=== PATIENT | male | born 1950 | race Two or more races ===

== ENCOUNTER → 2016-07-25 | Outpatient (CLI) | payer MEDICARE, BC ==
[2016-07-25 08:43] LABS: Cholesterol 109 mg/dL (<200); HDL Cholesterol 48 mg/dL (40-60); Triglycerides 52 mg/dL (<150)
== END | disposition home or self-care (01) ==
LOC: LABWHC1 08:07
PROVIDERS: ATTEND Internal Medicine Cardiovascular Disease
DX: I25.10 Atherosclerotic heart disease of native coronary artery without angina pectoris (principal)
CPT/HCPCS: 36415; 80061

== ENCOUNTER → 2016-09-08 | Outpatient (CLI) | payer BC, MEDICARE ==
--- NOTE | 2016-09-09 08:51 | CONS ---
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 The patient snores loud and this has been witnessed by his . She has also noted that at times he would quit breathing however, it has not been as frequent ( ) appearing event. He has had previous ( ). He has nocturia. No grinding of the teeth. No sleepwalking. No anxiety or panic attacks. No nighttime palpitations or heartburn. No waking up in the middle of night gasping for air. No restlessness in the lower extremities. No sleep talking or sleepwalking. The patient would wake up tired and yet not sleepy. He does not fall asleep while driving his car. He does to go to bed around 10:00 p.m., wakes up at 7 to 7:30 a.m. in the morning. He is averaging around 8 hours of sleep. No recent weight gain. He sleeps in a sidewise body position. He has never been involved in a motor vehicle accident because of feeling drowsy or sleepy. PAST MEDICAL HISTORY: 1. Coronary disease with nonocclusive CAD based on a previous cardiac catheterization. 2. Prostate cancer with previous prostatectomy. 3. Hyperlipidemia. 4. Varicose veins. PAST SURGICAL HISTORY: Includes varicose vein stripping. Cardiac catheterization and prostatectomy. DRUG ALLERGIES: Not known. HE IS ALLERGIC TO POLLEN AND WALNUTS. Outpatient medication list includes: 1. Metoprolol. 2. Atorvastatin. 3. Aspirin. 4. Garlique. 5. Vitamin D3. 6. Coenzyme Q. SOCIAL HISTORY: Nonsmoker. No history of alcohol, no history of IV drugs. FAMILY HISTORY: Noncontributory. REVIEW OF SYSTEMS: Twelve-point review of systems was done and positive findings were all mentioned above in the history of present illness. BP is 106/55, pulse is 64, respiratory rate 16, temperature 98.1, saturation 99% on room air. Weight is 176, height is 6 feet 2 inches, neck size 14-3/4 inches. GENERAL APPEARANCE: Calm, comfortable. HEENT: Crowding of posterior pharynx. Mallampati class IV. No goiter or neck masses. No overbite. No micrognathia. No macroglossia. LUNGS: Clear to auscultation. HEART: Sounds are regular rate and rhythm. Normal S1, S2. ABDOMEN: Soft, nontender. No organomegaly. EXTREMITIES: No edema. No cyanosis, or clubbing. IMPRESSION: 1. Obstructive sleep apnea suspected, clinically. Currently under investigation. 2. Coronary artery disease. 3. Varicose veins. 4. Hyperlipidemia. 5. Prostate cancer. PLAN: 1. Proceed with a home sleep study to investigate this patient for sleep apnea. 2. Treat accordingly.
== END ==
LOC: SLEEP 16:19
PROVIDERS: ATTEND Internal Medicine Critical Care Medicine
DX: I25.10 Atherosclerotic heart disease of native coronary artery without angina pectoris (principal); E78.5 Hyperlipidemia, unspecified; C61 Malignant neoplasm of prostate; I83.90 Asymptomatic varicose veins of unspecified lower extremity; Z79.82 Long term (current) use of aspirin; Z79.899 Other long term (current) drug therapy
CPT/HCPCS: 99211

== ENCOUNTER → 2016-12-08 | Outpatient (CLI) | payer MEDICARE ==
--- NOTE | 2016-12-08 17:38 | PN ---
PROGRESS NOTE 66-year-old male patient coming in for compliance check regarding VANNESSA treatment. 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 He underwent a home sleep study and was found to have moderate to severe obstructive sleep apnea and AHI of 29. Based on that, he was given CPAP titration during which he was titrated to a CPAP pressure of 9 cm of water. On today's evaluation, the patient reports marked improvement in his sleep quality. He is sleeping much better and is waking up much more alert and refreshed. As such, he has benefitted from the treatment and he is very happy with the quality of life that resulted from this treatment. He is using the CPAP on an average of 7.7 hours per night and this date I have accumulated over the past 30 days. He is using CPAP more than 4 hours 100% of the time. His AHI is down to 6. His leak is around 20 L/minutes. He is using a chin strap despite being on an AirFit F10 full face mask. We have recommended F 20 mask large size. BP is 109/72, pulse 57, respirations 16, [place] score of 2. Temperature 98.2, weight is 174, saturation 98%. General appearance is calm and comfortable. HEENT: Crowding of the posterior pharynx. No goiter. No neck masses. Lungs clear to auscultation. Heart sounds regular rhythm. Normal S1, S2. Soft nontender. No organomegaly. Extremities is no edema. No cyanosis or clubbing. IMPRESSION: 1. Obstructive sleep apnea. AHI of 29. The patient is undergoing successful treatment. He is benefiting from the treatment. He is very compliant based on the compliance data that was collected over the past 30 days. 2. Coronary artery disease. 3. Hyperlipidemia. PLAN: 1. Continue CPAP at a pressure of 9. 2. Switch this patient to an AirFit F 20 full-face mask. 3. Implement good sleep hygiene measures. 4. We will continue to follow. He will me back in a year's time. Earlier if needed. MMODL / IJN: [id number] /
== END ==
LOC: SLEEP 13:16
PROVIDERS: ATTEND Internal Medicine Critical Care Medicine
DX: G47.33 Obstructive sleep apnea (adult) (pediatric) (principal); E78.5 Hyperlipidemia, unspecified; I25.10 Atherosclerotic heart disease of native coronary artery without angina pectoris

== ENCOUNTER → 2017-08-21 | Outpatient (CLI) | payer MEDICARE ==
[2017-08-21 10:12] LABS: Cholesterol 129 mg/dL (<200); HDL Cholesterol 55 mg/dL (40-60); LDL Cholesterol,Calculated 65 mg/dL (0-99); Triglycerides 47 mg/dL (<150)
== END | disposition home or self-care (01) ==
LOC: LABWHC1 09:29
PROVIDERS: ATTEND Internal Medicine Cardiovascular Disease
DX: E78.5 Hyperlipidemia, unspecified (principal); I25.10 Atherosclerotic heart disease of native coronary artery without angina pectoris
CPT/HCPCS: 36415; 80061

== ENCOUNTER → 2018-01-04 | Outpatient (CLI) | payer MEDICARE ==
--- NOTE | 2018-01-04 18:44 | PN ---
PROGRESS NOTE Hermilo is coming in for an annual check regarding obstructive sleep apnea. The patient has been diagnosed having VANNESSA with an AHI of 29, and the patient is currently on CPAP therapy. The patient has been extremely successful in regards to his CPAP treatment. The patient has been averaging around 8.3 hours of CPAP use per night. The leak factor is 35 L/minute. He is using the CPAP every night without any interruption. AHI while on treatment is down to 9.5. He has no specific complaints otherwise for now. His [place] score is 5. No snoring while on CPAP therapy. No other complaints. PHYSICAL EXAMINATION: BP is 110/51, pulse 56, respiration 16, temperature 98.2, saturation 98% on room air. GENERAL APPEARANCE: Calm, comfortable. Head is atraumatic, normocephalic. NECK: Supple. No JVD. No goiter or neck mass. Mallampati class IV. LUNGS: Clear to auscultation. HEART: Heart sounds are regular rate and rhythm. Normal S1, S2. No S3, S4. No murmurs. ABDOMEN: Soft, nontender. No organomegaly. EXTREMITIES: No edema. No cyanosis or clubbing. IMPRESSION: 1. Obstructive sleep apnea, severe, with an apnea/hypopnea index of 29, currently on CPAP with successful therapy at a pressure of 9 cm of water. 2. Hypersomnia, recovered. [place] score is down to 5. 3. Coronary artery disease. 4. Hyperlipidemia. PLAN: 1. Continue CPAP therapy at the same level of pressure. 2. Sleep hygiene measures are all good. The patient is benefitting from the treatment. See me back in a year's time, earlier if needed. MMODL / IJN: [id number] /
== END | disposition home or self-care (01) ==
LOC: SLEEP 13:47
PROVIDERS: ATTEND Internal Medicine Critical Care Medicine
DX: G47.33 Obstructive sleep apnea (adult) (pediatric) (principal); I25.10 Atherosclerotic heart disease of native coronary artery without angina pectoris; E78.5 Hyperlipidemia, unspecified; Z99.89 Dependence on other enabling machines and devices

== ENCOUNTER → 2018-10-21 | Outpatient (CLI) | payer MEDICARE ==
--- NOTE | 2018-10-21 09:21 | US ---
EXAMINATION TYPE: US duplex aorta DATE OF EXAM: 10/21/2018 COMPARISON: NONE CLINICAL HISTORY: I71.4 AAA. Family Hx EXAM MEASUREMENTS: Abdominal Aorta: Proximal: 2.4 x 2.2 cm Mid: 2.0 x 1.9 cm Distal: 1.8 x 1.6 cm Bifurcation: 0.9 cm 0.9 cm No evidence of AAA Grayscale, color Doppler imaging performed of the abdominal aorta IMPRESSION: Abdominal aorta shows normal caliber.
--- NOTE | 2018-10-21 09:28 | US ---
EXAMINATION TYPE: US carotid duplex BILAT DATE OF EXAM: 10/21/2018 COMPARISON: NONE, Carotid US done elsewhere. CLINICAL HISTORY: I65.29 OCCLUSION AND STENOSIS OF CAROTID ARTERY. EXAM MEASUREMENTS: RIGHT: Peak Systolic Velocity (PSV) cm/sec ----- Right CCA: 100.5 ----- Right ICA: 120.6 ----- Right ECA: 127.1 ICA/CCA ratio: 1.2 RIGHT: End Diastole cm/sec ----- Right CCA: 27.3 ----- Right ICA: 55.9 ----- Right ECA: 17.1 LEFT: Peak Systolic Velocity (PSV) cm/sec ----- Left CCA: 86.3 ----- Left ICA: 106.1 ----- Left ECA: 138.4 ICA/CCA ratio: 1.2 LEFT: End Diastole cm/sec ----- Left CCA: 29.3 ----- Left ICA: 49.5 ----- Left ECA: 17.1 VERTEBRALS (direction of flow): Right Vertebral: Antegrade Left Vertebral: Antegrade Rhythm: Normal Calcified plaque bilateral bulbs Grayscale, color Doppler, spectral Doppler imaging performed of the carotid arteries. Waveform analys is does not show significant stenosis of the proximal internal carotid arteries. IMPRESSION: No hemodynamic significant stenosis of the proximal internal carotid arteries bilaterall y by Doppler criteria, an indirect measurement of carotid stenosis
== END | disposition home or self-care (01) ==
LOC: RADUSWWP 06:53
PROVIDERS: ATTEND Family Medicine
DX: I65.29 Occlusion and stenosis of unspecified carotid artery (principal)
CPT/HCPCS: 93880; 93979

== ENCOUNTER → 2018-12-27 | Outpatient (CLI) | payer MEDICARE ==
--- NOTE | 2018-12-27 19:57 | PN ---
PROGRESS NOTE Hermilo is doing well and he is coming in for annual check regarding his obstructive sleep apnea treatment. This patient has moderate to severe disease with an AHI of 29, and currently he is on CPAP at a pressure of 9 cm of water. He continues to be extremely compliant, averaging about 7.8 hours of CPAP use per night. His CPAP use for more than 4 hours is 29/30, averaging around 7.8 hours per night. His AHI is down to 9. No other issues for now. No other new complaints. His [place] score currently is down to 5. His weight is 175 pounds. There have been no other significant issues over this past one year. PHYSICAL EXAMINATION: VITAL SIGNS: BP is 103/56, pulse 56, respirations 16, temperature 98.4, saturation 99% on room air. GENERAL APPEARANCE: Calm, comfortable. HEAD: Atraumatic, normocephalic. NECK: Supple. No JVD. No goiter or neck masses. LUNGS: Clear to auscultation. HEART: Heart sounds are regular rate and rhythm. Normal S1, S2. No S3, S4. No murmurs. ABDOMEN: Soft, nontender. No organomegaly. EXTREMITIES: No edema. No cyanosis or clubbing. IMPRESSION: 1. Obstructive sleep apnea with apnea/hypopnea index of 29, currently on a CPAP pressure of 9. 2. Hypersomnia. 3. Coronary artery disease. 4. Hyperlipidemia. PLAN: 1. Continue CPAP therapy at the same level of pressure. 2. Renewal of CPAP supplies will be done. 3. Treatment is successful. See me back in a year's time. MMODL / IJN: [id number] /
== END | disposition home or self-care (01) ==
LOC: SLEEP 13:21
PROVIDERS: ATTEND Internal Medicine Critical Care Medicine
DX: G47.33 Obstructive sleep apnea (adult) (pediatric) (principal); I25.10 Atherosclerotic heart disease of native coronary artery without angina pectoris; E78.5 Hyperlipidemia, unspecified; Z99.89 Dependence on other enabling machines and devices

== ENCOUNTER → 2020-01-23 | Outpatient (CLI) | payer MEDICARE ==
--- NOTE | 2020-01-23 15:21 | P.PN ---
Subjective Progress Note Date: 01/23/20 on 01/23/2020, seeing this patient for a follow-up in the sleep center in regards to his obstructive sleep apnea. This is an annual check. The patient is 70 years old and the patient is known to have obstructive sleep apnea with an AHI of 29 and the patient was being treated with CPAP pressure of 9 cm of water. He was given an airfit F20 fullface mask. Note that during the course of the treatment, the patient started having increased leak and he was getting progressively more uncomfortable with the treatment. Based on that, he did his own adjustments. He lowered a CPAP pressure from 9 to 5 cm of water and has been on the same setting for around a few months. On today's compliancy evaluation, check the patient's CPAP unit. Despite the drop in the pressure,the patient is doing extremely well. The patient is tolerating the treatment. The patient has been wearing his CPAP overnight and his CPAP compliancy for more than 4 hours at 100%. His been averaging around 8.1 hours of CPAP use per night and hisAHI while on treatment is down to 7.1. His [place] score is at 5. No gastric distention. No chest pain. No heartburn. No shortness of breath. No altered mentation. No major hypersomnia and sleepiness during the day. He has been healthy. He has been trying to go to [place] for the winter. Repeat under good control. No other complaints or issues otherwise for now. His machine is functional. His weight has been stable. Objective - Exam bP is 100/70, pulse is 63, respirations 16, temperature is 98.3,height is 6 feet 1 inch, weight is 176, body mass index is 22.7, [place] score is at 5,his oxygen saturations around 99%on room air. The patient appeared well nourished and normally developed. Vital signs as documented. Head exam is unremarkable. No scleral icterus or corneal arcus noted. Neck is without jugular venous distension, thyromegaly, or carotid bruits. Carotid upstrokes are brisk bilaterally. Lungs are clear to auscultation and percussion. Cardiac exam reveals the PMI to be normally sized and situated. Rhythm is regular. First and second heart sounds normal. No murmurs, rubs or gallops. Abdominal exam reveals normal bowel sounds, no masses, no organomegaly and no aortic enlargement. Extremities are nonedematous and both femoral and pedal pulses are normal.Examination of the skin revealed no evidence of significant rashes, suspicious appearing nevi or other concerning lesions.Neurologically, the patient is awake and alert and the patient does not have any focal neurological deficit. Cranial nerves are essentially intact. Assessment and Plan Plan: 1 obstructive sleep apnea, moderate to severe in nature with an AHI of 29, currently adequately treated with a CPAP pressure of 5 cm of water. Compliance data was checked. Clinically improved. The patient epworth score is down to 5. 2 chronic hypersomnia, improved 3 coronary artery disease 4 hyperlipidemia Plan keep the same CPAP pressure of 5 cm of water. i try to increase the pressure up to 6 cm of water and even with that, the patient's mask seal was in good and the patient starts having increasedleaks around the mask. Based on that, I lowered the pressure back to 5 cm of water. I will keep the airfit F20 fullface maskfor now. Clinically the patient is feeling well. He is benefiting from the treatment. I do not see the need to increase the pressure any further. Comorbidities are all stable. He is compliant. I will refill his supplies and the tubing and the mask. I'll see him back in one years time in follow-up. During this time, the patient will be spending his winter in [place].
== END | disposition home or self-care (01) ==
LOC: SLEEP 14:49
PROVIDERS: ATTEND Internal Medicine Critical Care Medicine
DX: G47.33 Obstructive sleep apnea (adult) (pediatric) (principal); I25.10 Atherosclerotic heart disease of native coronary artery without angina pectoris; E78.5 Hyperlipidemia, unspecified; Z99.89 Dependence on other enabling machines and devices

== ENCOUNTER → 2020-10-09 | Outpatient (CLI) | payer MEDICARE ==
--- NOTE | 2020-10-09 12:30 | US ---
EXAMINATION TYPE: US liver DATE OF EXAM: 10/09/2020 COMPARISON: NONE CLINICAL HISTORY: R17. Elevated bilirubin EXAM MEASUREMENTS: Liver Length: 11.7 cm Gallbladder Wall: 0.2 cm CBD: 0.4 cm Right Kidney: 10.7 x 4.2 x 5.3 cm Pancreas: visualized portions wnl Liver: right lobe cyst measures 1.3 x 1.3 x 1.6 cm Gallbladder: No stones seen Evidence for sonographic Espinoza's sign: No CBD: wnl Right Kidney: No hydronephrosis or masses seen IMPRESSION: 1. The head and tail are poorly visualized of the pancreas due to overlying bowel gas. 2. No gallstones, sludge, or pericholecystic fluid. 3. 1.3 x 1.3 x 1.6 cm hepatic cyst with septation in the right lobe of the liver. 4. No right renal calculi or hydronephrosis. 5. No ascites.
== END | disposition home or self-care (01) ==
LOC: RADUSWWP 07:01
PROVIDERS: ATTEND Family Medicine
DX: K76.89 Other specified diseases of liver (principal)
CPT/HCPCS: 76705

== ENCOUNTER → 2021-01-14 | Outpatient (CLI) | payer MEDICARE ==
--- NOTE | 2021-01-14 15:27 | SFUN ---
SLEEP CENTER FOLLOW UP NOTE Hermilo is 71, coming in for an annual check regarding his obstructive sleep apnea. He is known to have moderate to severe disease with an AHI of 29. During his last visit I noted that the patient was having some residual obstructive respiratory events. I increased his pressure from 5 cm of water up to 6 cm of water. He was unable to tolerate and he dropped it back to 5 cm. On today's compliance data, the patient is averaging around 8 hours of CPAP use per night and his leak is on the order of 37 L/minute. His AHI is down to 14. He has a thin, elongated face which is making the mask seal quite unsuccessful. He is currently using an AirFit F20 full-face mask, large size. He is unable to increase the pressure because of increased leak, unable to hold the mask tight to his face because of discomfort. At any rate, he has lost around 10 pounds. He is feeling better. His snoring has subsided. He is much more alert and awake during the day. [place] score is 6. Despite the incomplete success of his VANNESSA treatment, the patient is feeling well and he benefits from the treatment. He reports his sleep quality to be good. REVIEW OF SYSTEMS: Fourteen-point review of systems was done. Positive findings are all mentioned above in the history of present illness. PHYSICAL EXAMINATION: BP is 131/75, pulse 51, respirations 16, temperature 97.3, saturation 97% on room air. Height is , weight is 166 and BMI is 21.3. [place] score is 6. GENERAL APPEARANCE: Calm, comfortable. HEAD: Atraumatic, normocephalic. Neck is supple. No JVD. No goiter or neck masses. LUNGS: Diminished. Otherwise clear. Heart sounds are regular rate and rhythm. Normal S1, S2. No S3, S4. No murmurs. ABDOMEN: Soft, nontender. No organomegaly. EXTREMITIES: No edema. No cyanosis or clubbing. NEUROLOGIC: Awake and alert. There is no focal neurological deficit. PSYCHIATRIC: Negative for anxiety or depression. IMPRESSION: 1. Obstructive sleep apnea, moderate to severe, AHI of 29, currently on CPAP at a pressure of 5. Treatment is incomplete, as the patient is having some residual obstructive respiratory events. Nevertheless, unable to increase the pressure because of increased leak and discomfort and poor tolerability. 2. Hypersomnia, improved. [place] score is down to 6. 3. Coronary artery disease. 4. Hyperlipidemia. PLAN: 1. On today's evaluation I offered the patient an AirFit F30i full-face mask, medium size. 2. If he is able to tolerate the mask effectively, I am suggesting increasing the pressure at a later stage, up to 6 cm of water. 3. He has lost around 10 pounds. 4. Treatment is successful. He is aware that his treatment is not absolutely complete, knowing that he does have some residual events. Nevertheless, as long as he is benefitting from the treatment, he wants to continue the treatment, which is fine at this point in time. We will do a re-evaluation in a year's time. JAXON / IJN: [id number] /
== END ==
LOC: SLEEP 13:13
PROVIDERS: ATTEND Internal Medicine Critical Care Medicine
DX: G47.33 Obstructive sleep apnea (adult) (pediatric) (principal); E78.5 Hyperlipidemia, unspecified; I25.10 Atherosclerotic heart disease of native coronary artery without angina pectoris; Z99.89 Dependence on other enabling machines and devices

== ENCOUNTER → 2022-01-06 | Outpatient (CLI) | payer MEDICARE ==
--- NOTE | 2022-01-06 16:18 | P.PN ---
Subjective Progress Note Date: 01/06/22 on 01/23/2020, seeing this patient for a follow-up in the sleep center in regards to his obstructive sleep apnea. This is an annual check. The patient is 70 years old and the patient is known to have obstructive sleep apnea with an AHI of 29 and the patient was being treated with CPAP pressure of 9 cm of water. He was given an airfit F20 fullface mask. Note that during the course of the treatment, the patient started having increased leak and he was getting progressively more uncomfortable with the treatment. Based on that, he did his own adjustments. He lowered a CPAP pressure from 9 to 5 cm of water and has been on the same setting for around a few months. On today's compliancy evaluation, check the patient's CPAP unit. Despite the drop in the pressure,the patient is doing extremely well. The patient is tolerating the treatment. The patient has been wearing his CPAP overnight and his CPAP compliancy for more than 4 hours at 100%. His been averaging around 8.1 hours of CPAP use per night and hisAHI while on treatment is down to 7.1. His [place] score is at 5. No gastric distention. No chest pain. No heartburn. No shortness of breath. No altered mentation. No major hypersomnia and sleepiness during the day. He has been healthy. He has been trying to go to [place] for the winter. Repeat under good control. No other complaints or issues otherwise for now. His machine is functional. His weight has been stable. On 01/06/2022, I'm seeing the patient for a follow-up. The patient is coming in for an annual check prior to him going to [place]. As mentioned earlier, this is a case of severe VANNESSA with an AHI of 29. The patient was initially treated with a CPAP pressure of 9 cm of water and he was using an airfit F20 fullface mask. He continued to have difficulties tolerating the CPAP therapy and I dropped it down to pressures of 5 and ultimately I dropped the pressure down to a pressure of 4 cm of water.. For now, the patient is utilizing the machine. He is very sensitive and he tells me that pressures of 5 he is unable to tolerate and he is able to tolerate a pressure of 4 and a based on a compliant. Over the past 30 days, the patient utilizes machine 29 out of 30 and the patient has achieved more than 4 hours 29 out of 30 with an average pressures of 8.5 hours per night with a leak of 8 L per minute and his AHI is down to 16.9. He is using the fullface mask for now. While off the treatment, he chokes and he gasps and he has active features of obstructive sleep apnea. No cardiovascular complications. No weight gain. Is quite active. No other complaints otherwise for now. Objective - Exam BP is 135/72 with a pulse of 60 and respirations 16 and a temperature of 97.0 with a saturation of 99% on room air oxygen. Weight is 172. The patient appeared well nourished and normally developed. Vital signs as documented. Head exam is unremarkable. No scleral icterus or corneal arcus noted. Neck is without jugular venous distension, thyromegaly, or carotid bruits. Carotid upstrokes are brisk bilaterally. Lungs are clear to auscultation and percussion. Cardiac exam reveals the PMI to be normally sized and situated. Rhythm is regular. First and second heart sounds normal. No murmurs, rubs or gallops. Abdominal exam reveals normal bowel sounds, no masses, no organomegaly and no aortic enlargement. Extremities are nonedematous and both femoral and pedal pulses are normal.Examination of the skin revealed no evidence of significant rashes, suspicious appearing nevi or other concerning lesions.Neurologically, the patient is awake and alert and the patient does not have any focal neurological deficit. Cranial nerves are essentially intact. Assessment and Plan Plan: 1 obstructive sleep apnea, moderate to severe in nature with an AHI of 29, currently adequately treated with a CPAP pressure of 5 cm of water. Unfortunately, his partially treated and the patient CPAP pressure was dropped down to 4 cm and he continues to have excessive difficulties in tolerating the pressure sensation. Nevertheless, he managed to use it at a pressure of 4 cm and he obviously is partially treated. The patient continues to have residual obstructive respiratory events. 2 chronic hypersomnia, improved 3 coronary artery disease 4 hyperlipidemia Plan keep the same CPAP pressure of 4 cm of water. The exact cause for his poor tolerability is not clear. I'm recommending to do another CPAP titration after the patient comes back to [place] and decide if the issue is a pressure issue or the machine itself is nonfunctioning is delivering pressures higher than what it supposed to. Meanwhile, the patient was asked to continue the same machine at same pressure of 4 cm of water. I will keep the airfit F20 fullface maskfor now. Clinically the patient is feeling well. He is benefiting from the treatment. I do not see the need to increase the pressure any further. Comorbidities are all stable. He is compliant. I will refill his supplies and the tubing and the mask. I'm going to see him back after he comes back from [place] and he will undergo a CPAP titration. He may possibly need a updated CPAP machine.
== END ==
LOC: SLEEP 15:55
PROVIDERS: ATTEND Internal Medicine Critical Care Medicine
DX: G47.33 Obstructive sleep apnea (adult) (pediatric) (principal); I25.10 Atherosclerotic heart disease of native coronary artery without angina pectoris; E78.5 Hyperlipidemia, unspecified; Z99.89 Dependence on other enabling machines and devices

== ENCOUNTER → 2022-07-09 | Outpatient (CLI) | payer MEDICARE ==
--- NOTE | 2022-07-09 16:00 | US ---
LOWER EXTREMITY VENOUS INSUFFICIENCY CLINICAL HISTORY: 72-year-old male I87.333 Venous insufficiency. Varicose veins, prior rt superficial stripping SIDE PERFORMED: bilateral FINDINGS: 1) Color flow is present and patency is documented in the following vessels. Bilateral: Common Femoral Vein Deep Femoral Vein Femoral Vein Popliteal Vein Proximal Calf Veins Greater Saph Vein - left only (stripped on right) Upper Small Saph Vein 2) Right: There is prominent venous reflux noted within the right deep system from groin to prox calf vn s. Left: Minimal to no reflux noted within the left deep and superficial system. IMPRESSION: 1. No evidence for DVT within the bilateral lower extremities imaged from the groin to the upper calv es. 2. Prominent venous reflux noted throughout the right lower extremity. 3. Minimal to no reflux noted within the left lower extremity.
== END | disposition home or self-care (01) ==
LOC: RADUSWWP 13:49
PROVIDERS: ATTEND Internal Medicine Cardiovascular Disease
DX: I87.2 Venous insufficiency (chronic) (peripheral) (principal); I87.333 Chronic venous hypertension (idiopathic) with ulcer and inflammation of bilateral lower extremity; E78.5 Hyperlipidemia, unspecified; N18.9 Chronic kidney disease, unspecified; I25.10 Atherosclerotic heart disease of native coronary artery without angina pectoris
CPT/HCPCS: 93970

== ENCOUNTER → 2022-11-17 | Outpatient (CLI) | payer MEDICARE ==
--- NOTE | 2022-11-17 15:36 | P.PN ---
Progress Note - Text Progress Note Date: 11/17/22 72-year-old male patient coming in for a follow-up regarding his VANNESSA treatment. The patient is being seen at the sleep Center. The patient has been diagnosed having obstructive sleep apnea. The patient is known to have moderately severe disease with an AHI of 29 and the patient was titrated to a CPAP pressure of 10 cm of water. The patient currently has a newer generation ResMed 11 CPAP unit. He is using the machine he has no issues with the treatment at this point in time and he feels comfortable and awake during the day. No major hypersomnia or sleepiness. I reviewed the compliance data that has been collected between 10/14/2022 and a dental thousand and 23 and the patient demonstrated a total of 7 hours and 42 minutes of CPAP use per night and the patient's overall compliancy has been ordered of 100% and the patient utilizes machine more than 4 hours 97% of the time. The patient's AHI is down to 10 without any central events. His leak site in order of 28 L/m. He is using a Simplus also facemask. No snoring while on treatment. No nighttime chest pain or shortness of breath or heartburn. No recent weight gain. Overall condition is stable and the patient is committed to long-term CPAP therapy BP is 122/67, pulse is 62, respirations 14, temperature is 98.4 and the patient's Faber score is at 3 and the patient's weight is 174 pounds. The patient appeared well nourished and normally developed. Vital signs as documented. Head exam is unremarkable. No scleral icterus or corneal arcus noted. Neck is without jugular venous distension, thyromegaly, or carotid bruits. Carotid upstrokes are brisk bilaterally. Lungs are clear to auscultation and percussion. Cardiac exam reveals the PMI to be normally sized and situated. Rhythm is regular. First and second heart sounds normal. No murmurs, rubs or gallops. Abdominal exam reveals normal bowel sounds, no masses, no organomegaly and no aortic enlargement. Extremities are nonedematous and both femoral and pedal pulses. Examination of the skin revealed no evidence of significant rashes, suspicious appearing nevi or other concerning lesions.Neurologically, the patient is awake and alert and the patient does not have any focal neurological deficit. Cranial nerves are essentially intact. Assessment Obstructive sleep apnea with an AHI of 29 and the patient is currently on CPAP therapy. Chronic hypersomnia Coronary artery disease Hyperlipidemia Plan I noted that the patient is still having some obstructive respiratory events on a CPAP pressure of 10 cm of water. I'm recommending an adjustment. I'm going to suggest exceedingly CPAP pressure up to 11 cm of water and hopefully should be enough to bring his AHI below 5. If not, further adjustment will be made in the future. The patient is still benefit from treatment is committed to long- term CPAP therapy. He has no specific complaints. We will going to refill the supplies. Encourage weight loss. Maintaining her sleep hygiene measures. We'll continue to follow.
== END ==
LOC: 3 N SLEEP 13:27
PROVIDERS: ATTEND Internal Medicine Critical Care Medicine
DX: G47.33 Obstructive sleep apnea (adult) (pediatric) (principal); E78.5 Hyperlipidemia, unspecified; I25.10 Atherosclerotic heart disease of native coronary artery without angina pectoris
CPT/HCPCS: 99212

== ENCOUNTER → 2022-12-22 | Outpatient (CLI) | payer MEDICARE ==
--- NOTE | 2022-12-22 19:27 | US ---
EXAMINATION TYPE: US Aorta Screening DATE OF EXAM: 12/22/2022 COMPARISON: NONE CLINICAL INDICATION: Male, 72 years old with history of Z13.6 Screening for abdominal aortic aneurysm ; screening TECHNIQUE: Multiple sonographic images of the abdominal aorta are obtained. FINDINGS: EXAM MEASUREMENTS: Abdominal Aorta: Proximal: 2.6 x 2.5cm Mid: 1.8 x 2.1cm Distal: 2.1 x 2.7cm Bifurcation: RT: 1.1 x 1.1cm LT: 1.2 x 1.2cm [employer]GER NOTES: *Limitations due to overlying bowel gas. Patient not NPO, ate lunch. Calcification s noted throughout. Borderline measurement of distal aorta IMPRESSION: 1. Fusiform prominence of the distal abdominal aorta. Maximum AP diameter is 2.1 cm with a greater tr ansverse dimension and 2.7 cm.
== END | disposition home or self-care (01) ==
LOC: RADUSWWP 14:51
PROVIDERS: ATTEND Internal Medicine
DX: Z13.6 Encounter for screening for cardiovascular disorders (principal); I77.811 Abdominal aortic ectasia
CPT/HCPCS: 76706

== ENCOUNTER → 2024-01-04 | Outpatient (CLI) | payer MEDICARE ==
[2024-01-04 12:04] LABS: Basophils # (A) 0.01 X 10*3/uL (0.00-0.10); Basophils % (A) 0.5 %; Eosinophils # (A) 0.06 X 10*3/uL (0.04-0.35); Eosinophils % (A) 2.8 %; HCT 35.6 % (39.6-50.0); HGB 12.4 g/dL (13.0-17.0); Immature Grans, Automated 0 %; Lymphocytes # (A) 1.18 X 10*3/uL (0.90-5.00); Lymphocytes % (A) 54.6 %; MCH 35.3 pg (27.0-32.0); MCHC 34.8 g/dL (32.0-37.0); MCV 101.4 FL (80.0-97.0); Mean Platelet Volume 8.9 FL (9.5-12.2); Monocytes # (A) 0.11 X 10*3/uL (0.20-1.00); Monocytes % (A) 5.1 %; NRBC Per 100 WBC 0 X 10*3/uL (0.00-0.01); Platelet Count 96 X 10*3/uL (140-440); RBC 3.51 X 10*6/uL (4.40-5.60); RBC Morphology Normal (Normal); RDW 12.6 % (11.5-14.5); WBC 2.16 X 10*3/uL (4.50-10.00)
[2024-01-04 12:30] LABS: Appearance,Urine Clear (Clear); Bilirubin,Urine Negative (Negative); Blood,Urine Negative (Negative); Color,Urine Yellow (Yellow); Ketones,Urine 15 (Negative); Nitrite,Urine Negative (Negative); PH, Urine 5.5; Specific Gravity,Urine 1.022 (1.001-1.030); Urobilinogen,Urine 0.2 E.U./DL
[2024-01-04 15:50] LABS: % Iron Saturation 62.32 (15.00-50.00); ALT 21 U/L (10-49); AST 32 U/L (14-35); Albumin 4.5 g/dL (3.8-4.9); Albumin/Globulin Ratio 2.37 Ratio (1.60-3.17); Alkaline Phosphatase 81 U/L (41-126); BUN/Creat Ratio 20.11 Ratio (12.00-20.00); Blood Urea Nitrogen 18.1 mg/dL (9.0-27.0); Carbon Dioxide 26.9 mmol/L (21.6-31.8); Chloride 105 mmol/L (96-109); Chol/HDL Ratio 2.04 Ratio; Globulin 1.9 g/dL (1.6-3.3); Glucose 91 mg/dL (70-110); Iron 172 UG/DL (65-175); LDH 175 U/L (120-246); LDL Cholesterol,Calculated 57.6 mg/dL (0.0-131.0); Magnesium 2.1 mg/dL (1.5-2.4); Potassium 3.9 mmol/L (3.5-5.5); Prostate Specific Antigen 0.64 ng/mL (0.000-6.500); Sodium 143 mmol/L (135-145); Total Iron Binding Capacity 276 UG/DL (228-460); Total Protein 6.4 g/dL (6.2-8.2); Uric Acid 4.5 mg/dL (3.7-8.7); VLDL Calculation 8.72 mg/dL (5.00-40.00)
== END | disposition home or self-care (01) ==
LOC: LABWHC1 08:37
PROVIDERS: ATTEND Urology
DX: C61 Malignant neoplasm of prostate (principal); I10 Essential (primary) hypertension; D64.9 Anemia, unspecified; G47.33 Obstructive sleep apnea (adult) (pediatric); E78.2 Mixed hyperlipidemia
CPT/HCPCS: 36415; 80053; 80061; 81003; 82306; 82607; 82728; 82746; 83010; 83036; 83540; 83550; 83615; 83735; 84153; 84443; 84550; 85025; 85045

== ENCOUNTER → 2024-01-27 | Outpatient (CLI) | payer MEDICARE ==
--- NOTE | 2024-01-28 15:03 | PE ---
EXAMINATION TYPE: PET CT fusion skull to thigh DATE OF EXAM: 01/27/2024 CLINICAL INDICATION:Male, 73 years old with history of C61 PROSTATE CANCER; TECHNIQUE: Following the intravenous administration of 5.94 mCi of Ga-68 Illuccix (PSMA), whole bod y images are performed from the skull base to the midthigh. Images are reviewed on the computer in t he coronal, axial, and sagittal planes. Reconstructed rotating images are created on independent wor kstation and reviewed on the computer. A non-contrast CT is performed in conjunction with the PET s can. CT DLP: 545 mGycm, Automated exposure control for dose reduction was used. COMPARISON: CT None, PET/CT None, MRI: None FINDINGS: Mediastinal SUV mean is 1.33. Hepatic parenchyma SUV mean is 4.6. SKULL BASE AND NECK: No suspicious radiotracer activity. CHEST, MEDIASTINUM, AND HILAR REGION: No suspicious radiotracer activity. ABDOMEN AND PELVIS: * No suspicious radiotracer activity. * Prostate is surgically absent. No suspicious uptake in the surgical bed visualized uptake within t he bladder lumen limits evaluation of the margin of the urinary bladder. MUSCULOSKELETAL STRUCTURES: * No suspicious radiotracer activity. * Suspected degeneration uptake at the anterior aspect of an osteophyte at the vertebral body L5-S1 max SUV 5.[address]: * Coronary atherosclerosis. * Severe atherosclerosis of the arterial vasculature with infrarenal saccular dilation near the aort ic bifurcation measuring up to 2.5 cm. * * * * IMPRESSION: No definitive radiotracer activity to suggest metastatic disease or recurrence. If PSA is rising cons ider repeat exam in 6 months. [facility], , 01/28/2024 3:00 PM
== END | disposition home or self-care (01) ==
LOC: RADPETMAIN 13:58
PROVIDERS: ATTEND Urology
DX: C61 Malignant neoplasm of prostate (principal)
CPT/HCPCS: 78815

== ENCOUNTER → 2024-09-21 | Outpatient (CLI) | payer MEDICARE | END | disposition home or self-care (01) | LOC: LABWHC1 12:07 | PROVIDERS: ATTEND Urology | DX: C61 Malignant neoplasm of prostate (principal) | CPT/HCPCS: 36415; 84153 ==